=== PATIENT | female | born 1950 | race Hispanic/Latino ===

== ENCOUNTER 2017-08-07 12:03 | Emergency (ER) | payer OTHER ==
[2017-08-07] MEDS ORDERED: ACETAMINOPHEN 325 MG TAB ONE (12:17)
[2017-08-07] MEDS ORDERED: OSELTAMIVIR PHOSPHATE 75 MG CAP ONE (12:51)
[2017-08-07] MEDS ORDERED: IBUPROFEN 400 MG TABLET ONE (12:53)
== END 2017-08-07 13:24 | disposition home or self-care (01) ==
LOC: EDH 12:03
DX: J09.X2 Influenza due to identified novel influenza A virus with other respiratory manifestations (principal); Z98.890 Other specified postprocedural states
CPT/HCPCS: 87804; 87880